=== PATIENT | female | born 1990 ===

== ENCOUNTER 2020-12-24 03:13 | Emergency (ER) | payer SELFPAY ==
[2020-12-24] MEDS ORDERED: LORazepam 2 MG/ML SDV IVPUSH ONE (03:38)
[2020-12-24] MEDS ORDERED: Sodium Chloride 0.9% 1,000 ML IV ONE ×3 (03:45→07:00)
[2020-12-24 03:55] LABS: CHLORIDE,CL 108 mmol/L (98-107); SODIUM,NA 145 mmol/L (136-145)
--- NOTE | 2020-12-24 04:05 | EDM.PDOC ---
ED HPI GENERAL MEDICAL PROBLEM - General Chief Complaint: Drug or Alcohol Abuse Stated Complaint: Intoxicated: drug and etoh Time Seen by Provider: 12/24/20 03:27 Source of Information: Reports: EMS History Limitations: Reports: Altered Mental Status - History of Present Illness INITIAL COMMENTS - FREE TEXT/NARRATIVE: Patient brought to ER after using suspected combo of ETOH and Heroin. Unable to verify what she took. Was out partying with two males this past evening. They called when they became concerned that she was dry heaving and not looking too well. EMS notes that although BP lower at 87/57, patient's O2 sats/respiratory effort normal. - Related Data Allergies Allergy/AdvReac Type Severity Reaction Status Date / Time Unable to Assess Allergy Unverified 12/24/20 04:24 Home Meds: Home Meds . [Unable to Verify Home Med List] 12/24/20 [History] Past Medical History Psychiatric History: Reports: Addiction ED ROS GENERAL - Review of Systems Review Of Systems: Unable To Obtain Reason Not Obtained: Patient under influence drugs/ETOH ED EXAM, GENERAL - Physical Exam Exam: See Below Exam Limited By: Combative/Threatening (altered LOC) General Appearance: Lethargic, Other (Flails when disturbed/kicks) Eye Exam: Bilateral Eye: EOMI Ears: Hearing Grossly Normal Nose: No: Nasal Deformity, Nasal Swelling, Nasal Drainage Throat/Mouth: Normal Voice, No Airway Compromise Head: Atraumatic, Normocephalic Neck: Supple Respiratory/Chest: No Respiratory Distress, Lungs Clear, Normal Breath Sounds, No Accessory Muscle Use GI/Abdominal: Soft, Non-Tender, No Distention (Female) Exam: Deferred Rectal (Female) Exam: Deferred Back Exam: No: Muscle Spasm Extremities: Normal Range of Motion, Normal Capillary Refill Neurological: Slow to Respond Skin Exam: Warm, Dry, Normal Color Course - Vital Signs Last Recorded V/S: Last Vital Signs Temp 36.3 C 12/24/20 03:13 Pulse 96 12/24/20 09:10 Resp 20 12/24/20 09:10 BP 112/72 12/24/20 09:10 Pulse Ox 99 12/24/20 09:10 - Orders/Labs/Meds Labs: Laboratory Tests 12/24/20 12/24/20 12/24/20 Range/Units 03:35 03:35 03:35 WBC 7.3 (4.0-10.2) K/uL RBC 4.46 (3.77-5.09) M/uL Hgb 14.2 (11.7-15.5) g/dL Hct 41.1 (34.0-46.0) % MCV 92.2 (84.0-98.0) fL MCH 31.8 (28.2-33.3) pg MCHC 34.5 (31.7-36.0) g/dL RDW 12.9 (11.2-14.1) % Plt Count 250 (150-350) K/uL Neut % (Auto) 48.5 (45.0-80.0) % Lymph % (Auto) 36.9 (10.0-50.0) % Vermilion % (Auto) 7.0 (2.0-14.0) % Eos % (Auto) 6.6 H (0.0-5.0) % Baso % (Auto) 1.0 (0.0-2.0) % Neut # (Auto) 3.53 (1.40-7.00) K/uL Lymph # (Auto) 2.68 (0.50-3.50) K/uL [place] # (Auto) 0.51 (0.00-1.00) K/uL Eos # (Auto) 0.48 (0.00-0.50) K/uL Baso # (Auto) 0.07 (0.00-0.20) K/uL Sodium 145 (136-145) mmol/L Potassium 3.5 (3.5-5.1) mmol/L Chloride 108 H (98-107) mmol/L Carbon Dioxide 24.8 (21.0-32.0) mmol/L BUN 9 (7-18) mg/dL Creatinine 0.70 (0.51-1.17) mg/dL Est Cr Clr Drug Dosing TNP Estimated GFR (MDRD) > 60 mL/min Glucose 101 H (70-99) mg/dL Lactic Acid 2.1 H (0.4-2.0) mmol/L Calcium 8.7 (8.5-10.1) mg/dL Total Bilirubin 0.3 (0.2-1.0) mg/dL AST 20 (15-37) U/L ALT 26 (12-78) U/L Alkaline Phosphatase 58 (46-116) IU/L Total Protein 7.3 (6.4-8.2) g/dL Albumin 3.9 (3.4-5.0) g/dL Urine Opiates Screen (NEGATIVE) Ur Buprenorphine Scrn (NEGATIVE) Ur Oxycodone Screen (NEGATIVE) Ur EDDP (Meth Metab) (NEGATIVE) Ur Barbiturates Screen (NEGATIVE) Ur Tricyclics Screen (NEGATIVE) Ur Amphetamine Screen (NEGATIVE) U Methamphetamines Scrn (NEGATIVE) Urine MDMA Screen (NEGATIVE) U Benzodiazepines Scrn (NEGATIVE) U Cocaine Metab Screen (NEGATIVE) U Marijuana (THC) Screen (NEGATIVE) Ethyl Alcohol 0.252 H (0.000-0.080) g/dL 12/24/20 Range/Units 03:57 WBC (4.0-10.2) K/uL RBC (3.77-5.09) M/uL Hgb (11.7-15.5) g/dL Hct (34.0-46.0) % MCV (84.0-98.0) fL MCH (28.2-33.3) pg MCHC (31.7-36.0) g/dL RDW (11.2-14.1) % Plt Count (150-350) K/uL Neut % (Auto) (45.0-80.0) % Lymph % (Auto) (10.0-50.0) % Vermilion % (Auto) (2.0-14.0) % Eos % (Auto) (0.0-5.0) % Baso % (Auto) (0.0-2.0) % Neut # (Auto) (1.40-7.00) K/uL Lymph # (Auto) (0.50-3.50) K/uL [place] # (Auto) (0.00-1.00) K/uL Eos # (Auto) (0.00-0.50) K/uL Baso # (Auto) (0.00-0.20) K/uL Sodium (136-145) mmol/L Potassium (3.5-5.1) mmol/L Chloride (98-107) mmol/L Carbon Dioxide (21.0-32.0) mmol/L BUN (7-18) mg/dL Creatinine (0.51-1.17) mg/dL Est Cr Clr Drug Dosing Estimated GFR (MDRD) mL/min Glucose (70-99) mg/dL Lactic Acid (0.4-2.0) mmol/L Calcium (8.5-10.1) mg/dL Total Bilirubin (0.2-1.0) mg/dL AST (15-37) U/L ALT (12-78) U/L Alkaline Phosphatase (46-116) IU/L Total Protein (6.4-8.2) g/dL Albumin (3.4-5.0) g/dL Urine Opiates Screen Negative (NEGATIVE) Ur Buprenorphine Scrn Negative (NEGATIVE) Ur Oxycodone Screen Negative (NEGATIVE) Ur EDDP (Meth Metab) Negative (NEGATIVE) Ur Barbiturates Screen Negative (NEGATIVE) Ur Tricyclics Screen Negative (NEGATIVE) Ur Amphetamine Screen Positive H (NEGATIVE) U Methamphetamines Scrn Positive H (NEGATIVE) Urine MDMA Screen Positive H (NEGATIVE) U Benzodiazepines Scrn Negative (NEGATIVE) U Cocaine Metab Screen Negative (NEGATIVE) U Marijuana (THC) Screen Negative (NEGATIVE) Ethyl Alcohol (0.000-0.080) g/dL Meds: Medications Discontinued Medications Generic Name Dose Route Start Last Admin Trade Name Freq PRN Reason Stop Dose Admin Sodium Chloride 1,000 mls @ 999 mls/hr 12/24/20 03:45 12/24/20 03:48 Normal Saline IV 12/24/20 04:45 999 mls/hr .BOLUS ONE Administration Sodium Chloride 1,000 mls @ 500 mls/hr 12/24/20 05:00 12/24/20 04:40 Normal Saline IV 12/24/20 06:59 500 mls/hr .BOLUS ONE Administration Sodium Chloride 1,000 mls @ 250 mls/hr 12/24/20 07:00 12/24/20 06:59 Normal Saline IV 12/24/20 10:59 250 mls/hr .BOLUS ONE Administration Lorazepam 1 mg 12/24/20 03:38 12/24/20 03:48 Lorazepam 2 Mg/Ml Sdv IVPUSH 12/24/20 03:39 1 mg ONETIME ONE Administration - Re-Assessments/Exams Free Text/Narrative Re-Assessment/Exam: 12/24/20 04:06 Nursing able to start IV. Patient suddenly became less combative during attempt at blood draw. Continued to be somnolent. Tearful. Admitted to drinking and heroin use. IV fluids started. Unable to obtain urine at this time for drug screen. Vital signs stable. No respiratory depression. Plan at this time is to give IV fluids in ER and observe patient while her system clears. Ativan given x1. Did discuss transfer to [place] to in ER due to patient's combativeness but have currently put that on hold now that she is more cooperative with her care. 12/24/20 15:22 Patient more awake per nursing staff around 0830. They received instruction to get patient breakfast and see if she would be able to eat while finishing her IV fluids. Patient scheduled to finish fluids at 11 00. She left AMA around 10am before re-examination. +Meth/MDMA with blood ETOH 0.25 Departure - Departure Time of Disposition: 10:00 Disposition: Against Medical Advice 07 Condition: Good Clinical Impression: MDMA abuse, Methamphetamine abuse Alcohol intoxication Qualifiers: Complication of substance-induced condition: with delirium Qualified Code(s): F10.921 - Alcohol use, unspecified with intoxication delirium - Discharge Information Referrals: PCP,None [Primary Care Provider] - Forms: ED Department Discharge Sepsis Event Note (ED) - Focused Exam Vital Signs: Vital Signs Pulse Resp BP BP Pulse Ox 12/24/20 09:10 96 20 112/72 99 12/24/20 08:55 96 16 109/74 98 12/24/20 08:26 100 16 112/77 99 12/24/20 07:55 100 16 116/82 100 12/24/20 07:25 101 H 16 115/90 96 12/24/20 06:08 102 H 16 110/72 99 12/24/20 05:52 99 15 115/71 100 12/24/20 05:40 102 H 12 116/86 100 12/24/20 05:31 103 H 12 110/88 100 12/24/20 05:07 99 13 94/66 100 12/24/20 04:37 97 12 86/54 L 100 12/24/20 04:21 97 14 98/73 100 12/24/20 03:55 102 H 13 110/66 100 12/24/20 03:40 97 15 101/61 97 12/24/20 03:29 107 H 15 100/63 99
[2020-12-24 06:23] LABS: BARBITURATE SCREEN,URINE NEGATIVE (NEGATIVE); BENZODIAZEPINES SCREEN,URINE NEGATIVE (NEGATIVE); EDDP,URINE SCREEN NEGATIVE (NEGATIVE); TCA SCREEN,URINE NEGATIVE (NEGATIVE); THC SCREEN,URINE 50 NG/ML NEGATIVE (NEGATIVE)
== END 2020-12-24 10:05 | disposition left against medical advice (07) ==
LOC: LL.ED 03:13
DX: F10.121 Alcohol abuse with intoxication delirium (principal); F15.10 Other stimulant abuse, uncomplicated; Y90.0 Blood alcohol level of less than 20 mg/100 ml
CPT/HCPCS: 36415; 80053; 80305-QW; 80307; 83605; 85025; 96374; 99283; 99285-25; J2060; J7030